=== PATIENT | male | born 1980 | race Caucasian/White ===

== ENCOUNTER 2017-01-18 05:32 | Day surgery (SDC) | payer OTHER, BC ==
[~2017-01-18] VITALS: Ht 175.3 cm; Wt 89.4 kg
--- NOTE | ~2017-01-18 | O ---
[facility] [place]ord[place] [address] OPERATIVE REPORT Name: MELITON BROWN Room #: DEP [facility].#: [id number] Admission: 01/18/17 Attend Phys: Zac Chandler MD Discharge: 01/18/17 Date of : 76 Report #: [id number] THIS REPORT FOR: //name// CC: Pancho Chandler DATE OF SERVICE: 01/18/2017 PREOPERATIVE DIAGNOSIS: Incarcerated ventral hernia. POSTOPERATIVE DIAGNOSIS: Pair of incarcerated ventral hernias containing preperitoneal fat. SURGEON: Zac Chandler MD. TIE KNITTER HELPER: None. PROCEDURE: Robotic repair of incarcerated ventral hernia with mesh. ANESTHESIA: General anesthetic and local anesthetic. ESTIMATED BLOOD LOSS: 25 mL. IV FLUIDS: 1600 mL of crystalloid. SPECIMENS TO PATHOLOGY: Incarcerated ventral hernia contents. FINDINGS: Two small 1 cm ventral hernia defects noted, just superior to the umbilicus. Total diameter of both defects together measured approximately 3 cm in maximal dimension. These hernias contained incarcerated preperitoneal fat and hernia sac, 11.[address] mesh with echo positioning system utilized. Defect was closed primarily with 0 Prolene, hand-sewn robotic closure, and then mesh was secured in place using running 0 PDS barbed suture, multiple central interrupted 0 PDS sutures were also anchored to the fascia to keep the mesh flush against the anterior abdominal wall. Peritoneum was closed over the mesh with a running 2-0 PDS. INDICATION FOR PROCEDURE: The patient is a very pleasant 36-year-old male patient, with a history of painful midline hernia. This had been worsening and discomfort over the past several months. This had been present for many months, and as the patient is employed with manual labor at times, this was noted to be worsened by lifting and straining against heavy objects. He, therefore, sought surgical evaluation and detailed discussion of the risks and benefits was held with the patient including bleeding, pain, infection, hernia recurrence, postoperative abscess, need for future procedure, damage to surrounding structures such as bowel, colon, bladder, stomach, liver, and other nearby [address] [address] OPERATIVE REPORT Name: MELITON BROWN Taniya Room #: DEP [facility] Samreen.#: [id number] Admission: 01/18/17 Attend Phys: Zac Chandler MD Discharge: 01/18/17 Date of : 76 Report #: [id number] anatomic structures. It was discussed that although these complications were unlikely, unforeseen circumstances might arise, which would require further therapy or intervention. All questions were answered to the patient's satisfaction and written informed consent was obtained. DESCRIPTION OF PROCEDURE: The patient was brought to the operating room and placed in a supine position. A timeout was taken to verify the patient's identity and to plan the procedure. SCDs were in place on the lower extremities bilaterally. Preoperative antibiotics were administered. Anesthesia was induced. The patient was intubated. Abdomen was sterilely prepped and draped in the standard fashion. The patient was placed with a bump under his right lateral thorax to rotate the patient slightly to the left. Sterile prep and drape was then performed. Right upper quadrant 5 mm incision was made after local anesthetic had been infiltrated. A 5 mm direct visual optical access was utilized to enter the peritoneal cavity. Inspection of the viscera showed that no injury had occurred upon entry. Right lower quadrant 8 mm robotic port was placed under direct vision after local anesthetic had been infiltrated and a 12 mm right lateral port was placed in similar fashion. The right upper quadrant 5 mm port was upsized to an 8 mm robotic port. The patient was then placed in the slight reverse Trendelenburg position with the right side slightly robotic, patient cart was then brought into the field and was docked successfully. Intraoperative photographs were taken at various points during the operation. The anterior abdominal wall was examined, and there was noted to be incarcerated preperitoneal fat and hernia sac. This was taken down using sharp dissection and electrocautery. A peritoneal flap was created to expose the fascia, around the hernia defect. Falciform ligament was taken down using electrocautery and sharp dissection. The hernia defects were then carefully identified and visualized. These were measured and each measuring approximately 1 cm in diameter. These were located approximately 3-4 cm superior to the umbilicus. The total diameter of the 2 small hernia defects together was approximately 3 cm. Incarcerated ventral hernia contents were extracted and passed off for specimen. The hernia defects were then closed using running 0 Prolene barbed suture using hand-sewn robotic technique. Once this had been performed, an 11.[address] mesh was brought into the field and rolled into a cylinder. This was then irrigated with sterile saline. This was passed through the 12 mm port and unfurled against the anterior abdominal wall. Echo positioning system was utilized, which had been brought out through a 2 mm stab incision, just superficial to the hernia defects themselves. This helped to hold the mesh up against the anterior abdominal wall. While this was sewn in place to the fascia using running 0 PDS suture with robotic technique. A series of interrupted 0 PDS fascial sutures were placed. A centrally and across the mesh to keep this flush, up against the anterior abdominal wall. It should also be noted that the intra-abdominal pressure was taken down to a level of 8-10 cm of water while the mesh was sewn in place. Once the mesh was well secured, the echo positioning device was removed from the 12 mm port, after it had been cut [facility] [address] [place] [address] OPERATIVE REPORT Name: MELITON BROWN Room #: DEP [facility] M.R.#: [id number] Admission: 01/18/17 Attend Phys: Zac Chandler MD Discharge: 01/18/17 Date of : 76 Report #: [id number] externally. The peritoneal flap was then closed over the hernia mesh using running 0 PDS suture with robotic hand-sewn technique. Inspection of the intra-abdominal cavity showed that no active bleeding was ongoing, and at this point, the robotic patient cart was undocked, and the 12 mm port was removed. The fascia was closed at that level using 0 PDS [id number] suture, on a suture passer under direct vision. The remaining 8 mm ports were removed after pneumoperitoneum had been relieved. The skin was closed at each of the 3 sites using 4-0 Monocryl subcuticular stitch. Dermabond was applied superficially at each of the 3 port sites, as well as stab incision superior to the umbilicus. An abdominal binder was applied. At this point, the case was ended, all instrumentation had been extracted and accounted for. All counts were correct per nursing report. The patient was extubated and taken to the postoperative care unit in stable condition. By: [id number] Zac Chandler MD /alfredo
--- NOTE | ~2017-01-18 | S ---
[facility] [place] [address] SURGICAL PATH RPT PROCEDURE Name: DRISS SUN Room #: DEP [facility]..#: [id number] Admission: 01/18/17 Date of : 76 Discharge: 01/18/17 Report #: [id number] Path Case #: [id number] PATHOLOGY REPORT COLLECTION DATE: 01/18/2017 RECEIVED DATE: 01/18/2017 SUBMITTING PHYS: Dr. Zac Chandler OTHER PHYS: Dr. Pancho Christiansen SPECIMEN(S) RECEIVED: A.Incarcerated ventral hernia contents * * * * * * * * * * * * FINAL DIAGNOSIS: Fibroadipose tissue, "incarcerated ventral hernia contents": - Fibroadipose tissue with recent hemorrhage consistent with incarcerated hernia contents. PATHOLOGIST: Gio Davis M.D. REPORT ELECTRONICALLY SIGNED BY: Gio Davis M.D. DATE/TIME: 01/20/2017 10:47 * * * * * * * * * * * * GROSS PATHOLOGY: Received in formalin labeled "Driss Sun, incarcerated ventral hernia contents," are multiple pieces of fibroadipose tissue measuring 3.0 x 3.0 x 1.5 cm. No nodules or lesions are identified. Groundman/Lineman tissue is submitted in cassette A1. (CAA; 01/19/2017) CLINICAL HISTORY: Umbilical hernia INITIAL CPT CODE(S): A; 61532 Professional services performed by [facility] at [address], [place] [address] Technical services performed by [facility] at [address] [place] [address]., [address], [place] [address]. [facility] [address] [place] [address] SURGICAL PATH RPT PROCEDURE Name: DRISS SUN Room #: DEP [facility] Jessi#: [id number] Admission: 01/18/17 Date of : 76 Discharge: 01/18/17 Report #: [id number] Path Case #: [id number] [address] PHONE: [phone] DIRECTOR: Alvaro Kent M.D. * * * END OF REPORT * * *
[~2017-01-18 05:32] MED LIST: CITRATE OF MAG296 ML PO; COLACE100 MG PO; VYVANSE10 MG PO
[2017-01-18 07:30] VITALS: BP 141/83
[2017-01-18] MEDS ORDERED: NEURONTIN 300300 M1 PO (12:07)
[2017-01-18] MEDS ORDERED: HYDROCODONE-AP1 EAC6 PO (12:07)
[2017-01-18] MEDS ORDERED: COLACE100 MG PO (12:07)
[2017-01-18 12:17] VITALS: BP 141/83
== END 2017-01-18 13:14 | disposition home or self-care (01) ==
LOC: OR 05:32 → TBA 05:32 → OR 08:14
DX: K43.6 Other and unspecified ventral hernia with obstruction, without gangrene (principal); K21.9 Gastro-esophageal reflux disease without esophagitis; F17.210 Nicotine dependence, cigarettes, uncomplicated
CPT/HCPCS: 49000; 50010; 50101; 50249; 50386; 50555; 50980; 52265; 54022; 54118; 56525; 56526; 57092; 62110; 62900; 70005